=== PATIENT | female | born 1990 | race Hispanic/Latino ===

== ENCOUNTER 2024-02-07 09:16 | Emergency (ER) | payer MEDICARE ==
[~2024-02-07] VITALS: Ht 170.2 cm; Wt 88.0 kg
[~2024-02-07 09:16] MED LIST: ONDANSETRON ODT4 MG PO
[2024-02-07 11:40] LABS: BASOPHILS % 0.2 % (0.0-1.0); EOSINOPHILS % 0.8 % (0.0-6.0); HEMATOCRIT 42.1 % (34.2-44.1); HEMOGLOBIN 13.5 g/dL (12.0-16.0); LYMPHOCYTES # (AUTO) 1.1 (1.0-3.2); LYMPHOCYTES % 20.7 % (18.0-39.1); MEAN CORPUSCULAR HEMOGLOBIN 29.3 pg (28-32); MEAN CORPUSCULAR HGB CONC 32.1 g/dL (31-35); MEAN CORPUSCULAR VOLUME 91.5 fL (81-99); MONOCYTES # (AUTO) 0.7 (0.2-0.8); MONOCYTES % 12.8 % (4.4-11.3); NEUTROPHILS # (AUTO) 3.5 (2.1-6.9); NEUTROPHILS % 64.9 % (38.7-80.0); PLATELET COUNT 254 x10e3/uL (140-360); RED CELL DISTRIBUTION WIDTH 12.7 % (11.7-14.4); WHITE BLOOD COUNT 5.32 x10e3/uL (4.8-10.8)
[2024-02-07] MEDS: ONDANSETRON HCL INJ 2MG/ML 2ML 2 MG/ML VIAL IV STA (11:50)
[2024-02-07] MEDS: SODIUM CHLORIDE 0.9% 1000ML 1,000 ML IV STA (11:50)
[2024-02-07 11:51] LABS: ANION GAP 13.1 mmol/L (8-16); CALCIUM 8.7 mg/dL (8.4-10.2); CREATININE, SERUM 0.72 mg/dL (0.57-1.11); POTASSIUM 4.1 mmol/L (3.5-5.1)
[2024-02-07 12:08] LABS: CLARITY,URINE SL CLOUDY (CLEAR); COLOR,URINE YELLOW (YELLOW); GLUCOSE, URINE NEGATIVE (NEGATIVE); KETONES,URINE NEGATIVE (NEGATIVE); LEUKOCYTE ESTERASE ,URINE NEGATIVE (NEGATIVE); NITRITE,URINE NEGATIVE (NEGATIVE); PH,URINE 6 (5 - 7); PROTEIN,URINE DIPSTICK NEGATIVE (NEGATIVE); URINE UROBILINOGEN 1 mg/dL (0.2 - 1)
[2024-02-07 12:09] LABS: BACTERIA,URINE MODERATE /HPF; BILIRUBIN,URINE NEGATIVE (NEGATIVE); EPITHELIAL CELLS,URINE MODERATE /LPF
[2024-02-07 12:10] LABS: PREGNANCY TEST, URINE NEGATIVE (NEGATIVE)
[2024-02-07 13:00] LABS: INFLUENZAE A&B ANTIGEN (RAPID) POSITIVE FLU B (NEGATIVE)
[2024-02-07 13:01] LABS: RESPIRATORY SYNC. VIRUS POSITIVE (NEGATIVE)
[2024-02-07] MEDS ORDERED: BENZONATATE200 MG PO (13:57)
[2024-02-07 14:18] VITALS: O2SAT 98
[2024-02-07] MEDS ORDERED: IBUPROFEN 600 MG TAB ONE (14:30)
[2024-02-07] MEDS: IBUPROFEN 600 MG TAB PO STA (14:41)
== END 2024-02-07 14:43 | disposition home or self-care (01) ==
LOC: ER 10:29
DX: R50.9 Fever, unspecified (principal); J10.1 Influenza due to other identified influenza virus with other respiratory manifestations; R10.30 Lower abdominal pain, unspecified; K86.9 Disease of pancreas, unspecified; Z11.52 Encounter for screening for COVID-19
CPT/HCPCS: 36415; 74176; 80048; 81001; 81025; 85025; 87400; 87420; 99284; J2405; J7030; U0002

== ENCOUNTER 2024-07-20 17:21 | Emergency (ER) ==
[~2024-07-20 17:21] MED LIST changes: +BENZONATATE200 MG PO
== END 2024-07-20 17:49 | disposition short-term general hospital (02) ==
LOC: ER 17:31
DX: R55 Syncope and collapse (principal)